=== PATIENT | female | born 1945 | race Caucasian/White ===

== ENCOUNTER → 2024-06-24 | Outpatient (CLI) | payer MEDICARE, OTHER, SELFPAY ==
[2024-06-24 12:46] LABS: Collection Type, Urine Clean Catch; Squamous Epithelial Cell,Urine 0 /hpf (0-5)
[2024-06-24 12:49] LABS: Basophils # (Auto) 0.1 Thou/mm3 (0.0-0.2); Basophils % (Auto) 1 % (0-2.5); Eosinophils # (Auto) 0.1 Thou/mm3 (0.0-0.5); Eosinophils % (Auto) 1 % (0-10); Hematocrit 38.7 % (36.0-46.0); Hemoglobin 12.9 g/dL (12.0-16.0); Immature Granulocytes % (Auto) 0 % (0-0); Immature Granulocytes Auto 0.01 Thou/mm3 (0.00-0.00); Lymphocytes # (Auto) 1.9 Thou/mm3 (1.0-4.8); Lymphocytes % (Auto) 30 % (10-50); Mean Corpuscular HGB Conc 33.3 g/dl (31.0-37.0); Mean Corpuscular Volume 93 fL (80-100); Monocytes # (Auto) 0.5 Thou/mm3 (0.0-0.8); Monocytes % (Auto) 7 % (0-12); Neutrophils # (Auto) 3.8 Thou/mm3 (1.8-7.7); Neutrophils % (Auto) 61 % (37-80); Nucleated Red Blood Cell % 0 /100 WBC (0); Platelet Count 286 Thou/mm3 (140-440); RDW Standard Deviation 42.7 fL (36.4-46.3); Red Blood Count 4.16 Miln/mm3 (4.00-5.20); White Blood Count 6.2 Thou/mm3 (3.6-11.0)
[2024-06-24 13:03] LABS: Alanine Aminotransferase 16 U/L (10-49); Albumin, Serum 4.8 gm/dL (3.4-4.8); Albumin/Globulin Ratio 2.1 (1.2-2.2); Alkaline Phosphatase 44 U/L (46-116); Anion Gap 6 (7-16); Aspartate Amino Transferase 28 U/L (0-34); BUN/Creatinine Ratio 32 Ratio (12-20); Bilirubin,Total 0.4 mg/dL (0.3-1.2); Blood Urea Nitrogen 29 mg/dL (9-23); Carbon Dioxide 27.6 mMol/L (20.0-31.0); Chloride 100 mMol/L (98-107); Creatinine (Component) 0.9 mg/dL (0.6-1.3); Globulin 2.3 gm/dL (2.3-3.5); Glucose 105 mg/dL (74-106); Osmolality,Calculated 274 (275-295); Potassium 4.3 mMol/L (3.4-5.1); Sodium 134 mMol/L (136-145); Thyroid Stimulating Hormone 2.37 uIU/mL (0.55-4.78); Total Protein 7.1 gm/dL (5.7-8.2); eGFR > 60 See Note
[2024-06-24 13:55] LABS: Bilirubin,Urine Negative (Negative); Blood,Urine Negative (Negative); Clarity,Urine Clear (Clear/Hazy); Color,Urine Lt-Yellow (Lt Yel-Yel); Culture Indicated,Urine Not Indicated; Glucose, Urine Negative (Negative); Ketones,Urine Negative (Negative); Leukocyte Esterase,Urine Negative (Negative); Nitrite,Urine Negative (Negative); PH,Urine 6.5 (5.0-7.0); Protein,Urine Negative (Neg - Trace); RBC,Urine 5 /hpf (0-3); Specific Gravity,Urine 1.018 (1.001-1.035); Urobilinogen,Urine Negative mg/dL (0.0-1.0); WBC,Urine < 1 /hpf (0-5)
[2024-06-24 14:18] LABS: Iron 57 mcg/dL (50-170)
[2024-06-25 01:35] LABS: Ferritin 88 ng/mL (7.3-270.7)
== END | disposition home or self-care (01) ==
LOC: COPL 12:02
PROVIDERS: PCP Physician Assistant; Referring Provider Physician Assistant; Visit Provider Physician Assistant
DX: E03.9 Hypothyroidism, unspecified (principal); D50.9 Iron deficiency anemia, unspecified; R31.9 Hematuria, unspecified
CPT/HCPCS: 36415; 80053; 81001; 82728; 83540; 84443; 85025

== ENCOUNTER → 2024-07-11 | Outpatient (CLI) | payer MEDICARE, SELFPAY ==
--- NOTE | 2024-07-11 10:30 | XR_ITS ---
Examination: CT abdomen and pelvis without contrast. Coronal 3-D reconstructions. Sagittal 2-D reconstructions. Date and time of exam:July 11, 2024 1036 hours INDICATIONS: Microscopic hematuria and back pain beginning 8 months ago CTDI: vol (mGy): 7.94 DLP: (mGycm): 375 Technique: Axial images of the abdomen have been obtained, 3 mm slice thickness Intravenous contrast material has not been administered. Low dose protocols were performed. One or more of the following dose reduction techniques were used; automated exposure control, adjustment of the mA and/or KV according to patient size, use of iterative reconstruction technique. Findings: 22 mm left lobe liver cyst No gallstones Spleen is not enlarged No pancreatic mass 14 mm left adrenal nodule which appears to be an adenoma No renal or ureteral calculi, no hydronephrosis Aorta normal size Absent appendix No bowel obstruction Detail in the pelvis is reduced by bilateral hip arthroplasties No significant bladder detail Grade 1 anterolisthesis L4 on L5 Advanced degenerative disc disease L2-L3 IMPRESSION: No renal or ureteral calculi, no hydronephrosis If hematuria persists, consider renal urinary bladder sonography follow-up
== END | disposition home or self-care (01) ==
PROVIDERS: PCP Physician Assistant; Referring Provider Physician Assistant; Visit Provider Physician Assistant
DX: R31.9 Hematuria, unspecified (principal)
CPT/HCPCS: 74176

== ENCOUNTER → 2024-09-02 | Outpatient (CLI) | payer MEDICARE, SELFPAY ==
[2024-09-02 12:41] LABS: Collection Type, Urine Clean Catch
[2024-09-02 13:34] LABS: Bilirubin,Urine Negative (Negative); Blood,Urine Negative (Negative); Clarity,Urine Clear (Clear/Hazy); Color,Urine Drk-Yellow (Lt Yel-Yel); Glucose, Urine Negative (Negative); Ketones,Urine Negative (Negative); Leukocyte Esterase,Urine Negative (Negative); Nitrite,Urine Negative (Negative); Protein,Urine Negative (Neg - Trace); RBC,Urine 11 /hpf (0-3); Specific Gravity,Urine 1.026 (1.001-1.035); Squamous Epithelial Cell,Urine < 1 /hpf (0-5); Urobilinogen,Urine Negative mg/dL (0.0-1.0); WBC,Urine < 1 /hpf (0-5)
== END | disposition home or self-care (01) ==
LOC: SLDO 12:22
PROVIDERS: Referring Provider Nurse Practitioner Family; Visit Provider Nurse Practitioner Family
DX: R31.29 Other microscopic hematuria (principal)
CPT/HCPCS: 81001; 87086

== ENCOUNTER → 2024-09-23 | Outpatient (CLI) | payer MEDICARE, SELFPAY ==
[2024-09-23 12:19] LABS: Basophils # (Auto) 0.1 Thou/mm3 (0.0-0.2); Basophils % (Auto) 1 % (0-2.5); Eosinophils # (Auto) 0.1 Thou/mm3 (0.0-0.5); Eosinophils % (Auto) 1 % (0-10); Hematocrit 37.3 % (36.0-46.0); Hemoglobin 12.4 g/dL (12.0-16.0); Immature Granulocytes % (Auto) 0 % (0-0); Immature Granulocytes Auto 0.01 Thou/mm3 (0.00-0.00); Lymphocytes # (Auto) 1.7 Thou/mm3 (1.0-4.8); Lymphocytes % (Auto) 28 % (10-50); Mean Corpuscular HGB Conc 33.2 g/dl (31.0-37.0); Mean Corpuscular Hemoglobin 31.1 pg (25.0-35.0); Mean Corpuscular Volume 94 fL (80-100); Monocytes # (Auto) 0.4 Thou/mm3 (0.0-0.8); Monocytes % (Auto) 7 % (0-12); Neutrophils # (Auto) 3.9 Thou/mm3 (1.8-7.7); Neutrophils % (Auto) 63 % (37-80); Nucleated Red Blood Cell % 0 /100 WBC (0); Platelet Count 283 Thou/mm3 (140-440); RDW Standard Deviation 44.8 fL (36.4-46.3); Red Blood Count 3.99 Miln/mm3 (4.00-5.20); White Blood Count 6.1 Thou/mm3 (3.6-11.0)
[2024-09-23 12:32] LABS: Alanine Aminotransferase 18 U/L (10-49); Albumin, Serum 4.2 gm/dL (3.4-4.8); Albumin/Globulin Ratio 2.1 (1.2-2.2); Alkaline Phosphatase 34 U/L (46-116); Anion Gap 7 (7-16); Aspartate Amino Transferase 26 U/L (0-34); BUN/Creatinine Ratio 33 Ratio (12-20); Bilirubin,Total 0.4 mg/dL (0.3-1.2); Blood Urea Nitrogen 30 mg/dL (9-23); Calcium 9.8 mg/dL (8.3-10.6); Calcium (Corrected) 9.8 mg/dL (8.5-10.1); Carbon Dioxide 28.9 mMol/L (20.0-31.0); Chloride 99 mMol/L (98-107); Creatinine (Component) 0.9 mg/dL (0.6-1.3); Glucose 105 mg/dL (74-106); Osmolality,Calculated 276 (275-295); Potassium 4.2 mMol/L (3.4-5.1); Sodium 135 mMol/L (136-145); Total Protein 6.2 gm/dL (5.7-8.2); eGFR > 60 See Note
== END | disposition home or self-care (01) ==
LOC: SCTO 11:31
PROVIDERS: PCP Physician Assistant; Referring Provider Internal Medicine Hematology & Oncology; Visit Provider Internal Medicine Hematology & Oncology
DX: C50.412 Malignant neoplasm of upper-outer quadrant of left female breast (principal)
CPT/HCPCS: 36415; 80053; 85025

== ENCOUNTER 2024-09-30 14:32 | Outpatient (RCR) | payer MEDICARE, SELFPAY | END 2024-10-15 23:59 | disposition home or self-care (01) | LOC: SCTC 14:32 | PROVIDERS: PCP Physician Assistant; Referring Provider Physician Assistant; Visit Provider Internal Medicine Hematology & Oncology | DX: M85.839 Other specified disorders of bone density and structure, unspecified forearm (principal); C50.812 Malignant neoplasm of overlapping sites of left female breast; Z17.0 Estrogen receptor positive status [ER+]; Z17.22 Progesterone receptor negative status; Z17.32 Human epidermal growth factor receptor 2 negative status | CPT/HCPCS: 96372; J0897 ==

== ENCOUNTER → 2024-10-02 | Outpatient (CLI) | payer MEDICARE, SELFPAY ==
[2024-10-02 11:25] LABS: Basophils % (Auto) 1 % (0-2.5); Eosinophils # (Auto) 0.1 Thou/mm3 (0.0-0.5); Eosinophils % (Auto) 1 % (0-10); Hematocrit 37.2 % (36.0-46.0); Hemoglobin 12.5 g/dL (12.0-16.0); Immature Granulocytes % (Auto) 1 % (0-0); Immature Granulocytes Auto 0.03 Thou/mm3 (0.00-0.00); Lymphocytes # (Auto) 1.6 Thou/mm3 (1.0-4.8); Lymphocytes % (Auto) 25 % (10-50); Mean Corpuscular HGB Conc 33.6 g/dl (31.0-37.0); Mean Corpuscular Hemoglobin 31.3 pg (25.0-35.0); Mean Corpuscular Volume 93 fL (80-100); Monocytes # (Auto) 0.4 Thou/mm3 (0.0-0.8); Monocytes % (Auto) 7 % (0-12); Neutrophils # (Auto) 4.2 Thou/mm3 (1.8-7.7); Neutrophils % (Auto) 66 % (37-80); Nucleated Red Blood Cell % 0 /100 WBC (0); Platelet Count 285 Thou/mm3 (140-440); RDW Standard Deviation 45.1 fL (36.4-46.3); Red Blood Count 3.99 Miln/mm3 (4.00-5.20); White Blood Count 6.3 Thou/mm3 (3.6-11.0)
[2024-10-02 11:54] LABS: Albumin, Serum 4.4 gm/dL (3.4-4.8); Anion Gap 8 (7-16); BUN/Creatinine Ratio 28 Ratio (12-20); Blood Urea Nitrogen 28 mg/dL (9-23); Calcium 9.7 mg/dL (8.3-10.6); Calcium (Corrected) 9.7 mg/dL (8.5-10.1); Carbon Dioxide 27.4 mMol/L (20.0-31.0); Chloride 103 mMol/L (98-107); Glucose 106 mg/dL (74-106); Osmolality,Calculated 281 (275-295); Phosphorous 3.8 mg/dL (2.4-5.1); Potassium 4.2 mMol/L (3.4-5.1); Sodium 138 mMol/L (136-145); eGFR 58 See Note
[2024-10-02 11:55] LABS: Vitamin D 25 Hydroxy Total 57.4 ng/mL (7.3-40.2)
[2024-10-02 12:39] LABS: Creatinine,Random Urine 62 mg/dL (30-125); Protein Total, Random Urine 7 mg/dL (1-14)
== END | disposition home or self-care (01) ==
LOC: COPL 10:16
PROVIDERS: PCP Family Medicine; Referring Provider Internal Medicine; Visit Provider Internal Medicine
DX: M19.90 Unspecified osteoarthritis, unspecified site (principal); N18.2 Chronic kidney disease, stage 2 (mild); N20.0 Calculus of kidney
CPT/HCPCS: 36415; 80069; 82306; 82570; 84156; 85025

== ENCOUNTER 2024-11-27 15:11 | Outpatient (RCR) | payer MEDICARE, OTHER, SELFPAY ==
--- NOTE | 2024-12-07 23:45 | CTCFLWUP_ITS ---
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 She is currently on letrozole therapy, which was initiated after her Oncotype DX score of 22. The patient reports that she is doing fine with her current treatment regimen. She has been receiving Prolia injections for osteopenia, with her most recent injections in March and September, and the next one scheduled for March. The patient's bone density has shown improvement since 2018, with an 8-10% increase attributed to the Prolia treatment. Regarding calcium intake, the patient states that her calcium levels are good now. However, it was noted that she had been taking insufficient calcium for years, which contributed to her osteopenic condition. She reports consuming cheese daily but may not have been meeting her full calcium requirements through diet alone. The patient mentions receiving radiation treatment in the past, during which a physician had suggested she had a good 10 years left. This comment appears to have impacted her perception of her prognosis, although no current concerns about life expectancy were explicitly stated by the patient. Medications and Supplements - Letrozole - Prolia - Administered in March and September - Next dose scheduled for March - Improving bone density (8-10% improvement since 2018) - Calcium - Taken twice daily - Total daily requirement: 1200 milligrams - Vitamin D - Taken with lunch or dinner - Vitamin B12 Objective: Laboratory, Imaging, and Diagnostic Test Results - Oncotype DX score: 22 - DEXA scan: Shows osteopenia, improved 8-10% since 2018 - Mammogram and ultrasound (approximately 1 month ago): Normal - Liver enzymes: Normal - CT scan: Small adenoma on adrenal glands - Calcium level: Good (current) ONCOLOGY HISTORY: DIAGNOSIS: Stage Ia (pT1b, snN0, cM0), ER positive, WV negative, HER2/jaime negative, 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 S/p adjuvant radiation therapy (08/02/2023 - 08/24/2023) On adjuvant anastrozole since 06/14/2023. Remote history of TIA. History of glaucoma. History of osteopenia. REASON FOR TODAY?S VISIT: This is office follow-up visit. Ms. Wong is here at [facility]. She is currently on adjuvant anastrozole. She is tolerating it very well. Denies any complaints. Denies any joint pains, muscle aches, hot flashes, cough, chest pain, abdominal pain or leg cramps. Ambulating well without any help. Has good appetite and good energy levels. She is currently being followed by Dr. Matthews for possible irritable bowel syndrome. Malignant neoplasm of upper-outer quadrant of left female breast [ICD10] C50.412 DATE OF DIAGNOSIS: 03/19/2023 STAGE/TNM: Stage 1 T1nomo Er pos pr neg TREATMENT HISTORY: Care?Plan Start?Date Cycle Day Intent PROLia?60mg?every?6?months 09/20/2023 1 180 Palliative HISTORY OF PRESENT ILLNESS: Deacon Wong is a 79-year-old ENG speaking female with history of glaucoma, and TIA as the following oncology history. 12/06/2022: Bone density test? 03/16/2023: Ms. Wong had a left breast diagnostic mammogram with spot compression views as well as left breast ultrasound. 03/19/2023: Left breast needle core biopsy? 04/27/2023: Ms. Wong had left breast lumpectomy as well as sentinel lymph node biopsy. 06/06/2023: Ms. Wong was seen by Dr. Herbert, radiation oncologist. Prosigna (R) breast cancer gene signature assay test is requested. The insurance company denied Oncotype DX study. OTHER MEDICAL HISTORY/CONDITIONS: breast ca chicken poex ear infections chldhood glaucoma thyroid dx measales mmps rubella scarlet fever whoopig cough hip replacment bilat 2007 BILAT RENAL SURGERY FINGER FIGURE. 2017 HYSTRECTOMY ?Clone Other Med Hx? FAMILY HISTORY: Patient?denies?family?cancer?history. ?Clone Family Hx? 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 MEDICATIONS: 1. anastrozole - 1 mg 1 tab 1 tab po q daily 2. calcium - 600 mg 1 tab Twice a Day 3. ferrous sulfate - 325 mg Daily 4. Synthroid - 25 mcg/24 h Daily 5. Vitamin D3 - As directed?Palabra Meds? Medications Last Reconciled by Rosana Richter MA on 11/27/2024 ALLERGIES: No Known Drug Allergies REVIEW OF SYSTEMS: A complete 14-point review of systems was performed and is negative except as noted in interval history. PHYSICAL EXAMINATION: VITAL SIGNS: Temperature?98, B/P?126/75, Oxygen?Saturation?96% Weight?127?lbs PAIN: 0 - No pain ECOG Performance Status: 0 - Asymptomatic and fully active GENERAL APPEARANCE: Appears well, in no apparent distress, appropriately interactive. HEENT: Normocephalic, no temporal wasting, normal conjunctiva, no scleral icterus, normal hearing, lips without lesions, neck normal range of motion. CARDIOVASCULAR: Not assessed. PULMONARY: Normal respiratory effort, no respiratory distress or use of accessory muscles, speaking in full sentences, no tachypnea. EXTREMITIES: No pedal edema or cyanosis. SKIN: Normal skin appearance. NEUROLOGIC: Alert and oriented x4. PSHYCHIATRIC: Appropriate affect, mood normal, behavior normal, intact thought and speech. LABORATORY DATA: I have personally reviewed and interpreted each of the patient?s relevant lab tests, abnormal findings are below: Date 09/23/24 10/02/24 ??WHITE?BLOOD?COUNT?(Thou/mm3) 6.1 6.3 ??RED?BLOOD?COUNT?(Miln/mm3) 3.99?L 3.99?L ??HEMOGLOBIN?(gm/dl) 12.4 12.5 ??HEMATOCRIT?(%) 37.3 37.2 ??PLATELET?COUNT?(Thou/mm3) 283 285 ??NEUTROPHILS?%,?AUTO?(%) 63 66 ??LYMPH?%,?AUTO?(%) 28 25 ??NEUTROPHILS,?AUTO?(Thou/mm3) 3.9 4.2 ??GLUCOSE,RANDOM?(mg/dL) 105 106 ??BLOOD?UREA?NITROGEN?(mg/dL) 30?H 28?H ??CREATININE?(mg/dL) 0.90 1.00 ??SODIUM?(mmol/L) 135?L 138 ??POTASSIUM?(mmol/L) 4.2 4.2 ??CHLORIDE?(mmol/L) 99 103 ??CrCl?(CandG)?(ml/min) 47.44 42.90 ??AST/SGOT?(Unit/L) 26 ? ??ALT/SGPT?(Unit/L) 18 ? ??ALKALINE?PHOSPHATASE?(Unit/L) 34?L ? ??BILIRUBIN,?TOTAL?(mg/dL) 0.4 ? ??PROTEIN?TOTAL?(gm/dl) 6.2 ? ??ALBUMIN,?SERUM?(gm/dl) 4.2 4.4 ??GLOBULIN?(gm/dl) 2.0?L ? ??ALBUMIN/GLOBULIN?RATIO 2.1 ? 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 She has undergone lumpectomy. Oncotype DX score was 22. Recent mammogram and ultrasound were normal. Liver enzymes are normal. CT scan showed a small adenoma on the adrenal glands, not the liver. Plan: - Continue letrozole (current dose and frequency not specified) - Order CBC and CMP every 4 months - Release lab slip for CBC-CMP now - Continue regular follow-up imaging (mammogram and ultrasound) as per current schedule Osteopenia Assessment: Patient has osteopenia, diagnosed on previous DEXA scans. Bone density has improved by 8-10% since 2018, attributed to Prolia treatment. Patient has a history of inadequate calcium intake. Plan: - Continue Prolia injections every 6 months (next dose due in March) - Release lab slip for Prolia, including calcium level check - Increase daily calcium intake to 1200 mg, taken in two divided doses - Take calcium supplements with lunch or dinner, not breakfast - Ensure calcium supplements also contain vitamin D - Continue vitamin D supplementation (dose not specified) - Take vitamin D with a meal containing fat for better absorption - Encourage increased dietary calcium intake, especially from dairy products ORDERS: Order # Description [id number] Basic Metabolic Panel [id number] Basic Metabolic Panel [id number] Basic Metabolic Panel [id number] Basic Metabolic Panel RETURN TO CLINIC: BILLING AND COMPLIANCE: I reviewed external records from providers outside my specialty as summarized above. I spent a total of 50 minutes on this patient?s care on the day of their visit excluding time spent related to any billed procedures. This time includes time spent with the patient as well as time spent documenting in the medical record, reviewing patients records and tests, obtaining history, placing orders, communicating with other healthcare professionals, counseling the patient, family or caregiver, and/or care coordination for the diagnoses above. Electronically Signed by: Toney Montgomery MD T: 11:43 PM CC: PCP: Sara Wilkerson Referring: Sara Wilkerson This document was completed utilizing speech recognition software. Grammatical errors, random word insertions, pronoun errors, and incomplete sentences are an occasional consequence of this system due to software limitations, ambient noise, and hardware issues. Any formal questions or concerns about the content, text or information contained within the body of this dictation should be directly addressed to the provider for clarification.
== END 2024-12-15 23:59 | disposition home or self-care (01) ==
LOC: SCTC 15:11
PROVIDERS: PCP Family Medicine; Referring Provider Family Medicine; Visit Provider Internal Medicine Hematology & Oncology
DX: C50.812 Malignant neoplasm of overlapping sites of left female breast (principal); Z17.0 Estrogen receptor positive status [ER+]; Z17.22 Progesterone receptor negative status; Z17.32 Human epidermal growth factor receptor 2 negative status; Z79.811 Long term (current) use of aromatase inhibitors; Z90.12 Acquired absence of left breast and nipple; M85.88 Other specified disorders of bone density and structure, other site
CPT/HCPCS: 99212; G0463

== ENCOUNTER → 2024-12-29 | Outpatient (CLI) | payer MEDICARE, OTHER, SELFPAY ==
[2024-12-29 08:23] LABS: Basophils # (Auto) 0.0 Thou/mm3 (0.0-0.2); Basophils % (Auto) 1 % (0-2.5); Eosinophils # (Auto) 0.1 Thou/mm3 (0.0-0.5); Eosinophils % (Auto) 1 % (0-10); Hematocrit 39.3 % (36.0-46.0); Hemoglobin 13.0 g/dL (12.0-16.0); Immature Granulocytes Auto 0.01 Thou/mm3 (0.00-0.00); Lymphocytes # (Auto) 1.3 Thou/mm3 (1.0-4.8); Lymphocytes % (Auto) 25 % (10-50); Mean Corpuscular HGB Conc 33.1 g/dl (31.0-37.0); Mean Corpuscular Hemoglobin 31.2 pg (25.0-35.0); Mean Corpuscular Volume 94 fL (80-100); Monocytes # (Auto) 0.3 Thou/mm3 (0.0-0.8); Monocytes % (Auto) 6 % (0-12); Neutrophils # (Auto) 3.6 Thou/mm3 (1.8-7.7); Neutrophils % (Auto) 67 % (37-80); Nucleated Red Blood Cell # 0.00 Thou/mm3 (0.00-0.00); Nucleated Red Blood Cell % 0 /100 WBC (0); Platelet Count 266 Thou/mm3 (140-440); RDW Standard Deviation 42.4 fL (36.4-46.3); Red Blood Count 4.17 Miln/mm3 (4.00-5.20); White Blood Count 5.3 Thou/mm3 (3.6-11.0)
[2024-12-29 08:43] LABS: Vitamin B12 1531 pg/mL (211-911); Vitamin D 25 Hydroxy Total 76.0 ng/mL (7.3-40.2)
[2024-12-29 08:47] LABS: Alanine Aminotransferase 17 U/L (10-49); Albumin, Serum 4.5 gm/dL (3.4-4.8); Albumin/Globulin Ratio 2.1 (1.2-2.2); Alkaline Phosphatase 33 U/L (46-116); Anion Gap 9 (7-16); Aspartate Amino Transferase 28 U/L (0-34); BUN/Creatinine Ratio 19 Ratio (12-20); Bilirubin,Total 0.7 mg/dL (0.3-1.2); Blood Urea Nitrogen 17 mg/dL (9-23); Calcium 9.5 mg/dL (8.3-10.6); Calcium (Corrected) 9.5 mg/dL (8.5-10.1); Carbon Dioxide 27.6 mMol/L (20.0-31.0); Cardiac Risk Estimate 2.2 RATIO (3.7-5.6); Chloride 101 mMol/L (98-107); Cholesterol 196 mg/dL (132-200); Creatinine (Component) 0.9 mg/dL (0.6-1.3); Globulin 2.1 gm/dL (2.3-3.5); Glucose 106 mg/dL (74-106); HDL Cholesterol 89 mg/dL (40-60); LDL Cholesterol,Calculated 93 mg/dL (0-130); Osmolality,Calculated 277 (275-295); Potassium 4.2 mMol/L (3.4-5.1); Sodium 138 mMol/L (136-145); Thyroid Stimulating Hormone 2.95 uIU/mL (0.55-4.78); Total Protein 6.6 gm/dL (5.7-8.2); Triglycerides 69 mg/dL (30-150); eGFR > 60 See Note
[2024-12-29 08:50] LABS: Ferritin 97 ng/mL (7.3-270.7); Iron 76 mcg/dL (50-170)
[2025-01-05 08:07] LABS: Fecal Globin Result NOT DETECTED (NOT DETECTED)
== END | disposition home or self-care (01) ==
LOC: COPL 07:41
PROVIDERS: PCP Family Medicine; Referring Provider Physician Assistant; Visit Provider Physician Assistant
DX: E03.9 Hypothyroidism, unspecified (principal); D50.9 Iron deficiency anemia, unspecified; R31.9 Hematuria, unspecified; E55.9 Vitamin D deficiency, unspecified
CPT/HCPCS: 36415; 80053; 80061; 82274; 82306; 82607; 82728; 83540; 84443; 85025; G0328

== ENCOUNTER → 2025-01-02 | Outpatient (CLI) | payer MEDICARE, OTHER, SELFPAY ==
[2025-01-02 14:08] LABS: Collection Type, Urine Clean Catch; Squamous Epithelial Cell,Urine 0 /hpf (0-5)
[2025-01-02 14:48] LABS: Bilirubin,Urine Negative (Negative); Blood,Urine Trace (Negative); Clarity,Urine Clear (Clear/Hazy); Color,Urine Colorless (Lt Yel-Yel); Culture Indicated,Urine Not Indicated; Glucose, Urine Negative (Negative); Ketones,Urine Negative (Negative); Leukocyte Esterase,Urine Negative (Negative); Nitrite,Urine Negative (Negative); PH,Urine 6.0 (5.0-7.0); Protein,Urine Negative (Neg - Trace); RBC,Urine 1 /hpf (0-3); Specific Gravity,Urine 1.013 (1.001-1.035); Urobilinogen,Urine Negative mg/dL (0.0-1.0); WBC,Urine < 1 /hpf (0-5)
== END | disposition home or self-care (01) ==
LOC: SLDO 13:56
PROVIDERS: PCP Physician Assistant; Referring Provider Physician Assistant; Visit Provider Physician Assistant
DX: R31.9 Hematuria, unspecified (principal); D50.9 Iron deficiency anemia, unspecified; E03.9 Hypothyroidism, unspecified; E55.9 Vitamin D deficiency, unspecified
CPT/HCPCS: 81001

== ENCOUNTER → 2025-02-12 | Outpatient (CLI) | payer MEDICARE, OTHER, SELFPAY ==
--- NOTE | 2025-02-12 | XR_ITS ---
Examination: Bone densitometry Date and time of exam:February 12, 2025, 1417 hours INDICATIONS: Hysterectomy age 33 vitamin D and calcium 10 years Technique: Lumbar spine and forearm total bone mineralization values of an calculated. Peak reference and age match control results have been displayed. Findings: Lumbar spine total bone mineralization is1.086 gm/cm2. This is 0.4 standard deviations above peak reference. This is 3.0 standard deviations above age-matched controls. Forearm total bone mineralization is 0.530 gm/cm2 This is 0.7 standard deviations below peak reference. This is 2.4 standard deviations above age-matched controls Impression: There is normal mineralization based on lumbar spine measurements. There is normal mineralization based on forearm measurements Lumbar mineralization is increased 9.2% compared with December 06, 2022. Forearm Mineralization is increase 6.0% compared with December 06, 2022.
== END | disposition home or self-care (01) ==
PROVIDERS: PCP Physician Assistant; Referring Provider Physician Assistant; Visit Provider Physician Assistant
DX: M81.0 Age-related osteoporosis without current pathological fracture (principal)
CPT/HCPCS: 77080

== ENCOUNTER → 2025-03-24 | Outpatient (CLI) | payer MEDICARE, OTHER, SELFPAY ==
[2025-03-24 13:13] LABS: Basophils # (Auto) 0.0 Thou/mm3 (0.0-0.2); Basophils % (Auto) 1 % (0-2.5); Eosinophils # (Auto) 0.1 Thou/mm3 (0.0-0.5); Eosinophils % (Auto) 1 % (0-10); Hematocrit 36.5 % (36.0-46.0); Hemoglobin 12.0 g/dL (12.0-16.0); Immature Granulocytes Auto 0.01 Thou/mm3 (0.00-0.00); Lymphocytes # (Auto) 1.8 Thou/mm3 (1.0-4.8); Lymphocytes % (Auto) 28 % (10-50); Mean Corpuscular HGB Conc 32.9 g/dl (31.0-37.0); Mean Corpuscular Hemoglobin 30.8 pg (25.0-35.0); Mean Corpuscular Volume 94 fL (80-100); Monocytes # (Auto) 0.5 Thou/mm3 (0.0-0.8); Monocytes % (Auto) 8 % (0-12); Neutrophils # (Auto) 3.9 Thou/mm3 (1.8-7.7); Neutrophils % (Auto) 62 % (37-80); Nucleated Red Blood Cell # 0.00 Thou/mm3 (0.00-0.00); Nucleated Red Blood Cell % 0 /100 WBC (0); Platelet Count 263 Thou/mm3 (140-440); RDW Standard Deviation 43.1 fL (36.4-46.3); Red Blood Count 3.89 Miln/mm3 (4.00-5.20); White Blood Count 6.3 Thou/mm3 (3.6-11.0)
[2025-03-24 13:30] LABS: Alanine Aminotransferase 15 U/L (10-49); Albumin, Serum 4.7 gm/dL (3.4-4.8); Albumin/Globulin Ratio 2.4 (1.2-2.2); Alkaline Phosphatase 33 U/L (46-116); Anion Gap 8 (7-16); Aspartate Amino Transferase 27 U/L (0-34); BUN/Creatinine Ratio 30 Ratio (12-20); Bilirubin,Total 0.4 mg/dL (0.3-1.2); Blood Urea Nitrogen 27 mg/dL (9-23); Calcium 10.1 mg/dL (8.3-10.6); Calcium (Corrected) 10.1 mg/dL (8.5-10.1); Carbon Dioxide 27.3 mMol/L (20.0-31.0); Chloride 100 mMol/L (98-107); Creatinine (Component) 0.9 mg/dL (0.6-1.3); Globulin 2.0 gm/dL (2.3-3.5); Glucose 102 mg/dL (74-106); Osmolality,Calculated 275 (275-295); Potassium 4.4 mMol/L (3.4-5.1); Sodium 135 mMol/L (136-145); Total Protein 6.7 gm/dL (5.7-8.2); eGFR > 60 See Note
== END | disposition home or self-care (01) ==
LOC: SCTO 11:53
PROVIDERS: PCP Family Medicine; Referring Provider Internal Medicine Hematology & Oncology; Visit Provider Internal Medicine Hematology & Oncology
DX: C50.412 Malignant neoplasm of upper-outer quadrant of left female breast (principal)
CPT/HCPCS: 36415; 80053; 85025

== ENCOUNTER → 2025-03-31 | Outpatient (CLI) | payer MEDICARE, OTHER, SELFPAY ==
[2025-03-31 12:17] LABS: Basophils # (Auto) 0.1 Thou/mm3 (0.0-0.2); Basophils % (Auto) 1 % (0-2.5); Eosinophils # (Auto) 0.1 Thou/mm3 (0.0-0.5); Eosinophils % (Auto) 2 % (0-10); Hematocrit 37.1 % (36.0-46.0); Hemoglobin 12.3 g/dL (12.0-16.0); Immature Granulocytes Auto 0.01 Thou/mm3 (0.00-0.00); Lymphocytes # (Auto) 1.5 Thou/mm3 (1.0-4.8); Lymphocytes % (Auto) 29 % (10-50); Mean Corpuscular HGB Conc 33.2 g/dl (31.0-37.0); Mean Corpuscular Hemoglobin 31.1 pg (25.0-35.0); Mean Corpuscular Volume 94 fL (80-100); Monocytes # (Auto) 0.3 Thou/mm3 (0.0-0.8); Monocytes % (Auto) 7 % (0-12); Neutrophils # (Auto) 3.1 Thou/mm3 (1.8-7.7); Neutrophils % (Auto) 61 % (37-80); Nucleated Red Blood Cell # 0.00 Thou/mm3 (0.00-0.00); Nucleated Red Blood Cell % 0 /100 WBC (0); Platelet Count 251 Thou/mm3 (140-440); RDW Standard Deviation 43.3 fL (36.4-46.3); Red Blood Count 3.95 Miln/mm3 (4.00-5.20); White Blood Count 5.1 Thou/mm3 (3.6-11.0)
[2025-03-31 12:49] LABS: Albumin, Serum 4.5 gm/dL (3.4-4.8); Anion Gap 9 (7-16); BUN/Creatinine Ratio 30 Ratio (12-20); Blood Urea Nitrogen 27 mg/dL (9-23); Calcium 10.0 mg/dL (8.3-10.6); Calcium (Corrected) 10.0 mg/dL (8.5-10.1); Carbon Dioxide 29.3 mMol/L (20.0-31.0); Chloride 98 mMol/L (98-107); Creatinine (Component) 0.9 mg/dL (0.6-1.3); Glucose 112 mg/dL (74-106); Osmolality,Calculated 278 (275-295); Phosphorous 3.5 mg/dL (2.4-5.1); Potassium 4.3 mMol/L (3.4-5.1); Sodium 136 mMol/L (136-145); eGFR > 60 See Note
[2025-03-31 12:51] LABS: Vitamin D 25 Hydroxy Total 65.1 ng/mL (7.3-40.2)
== END | disposition home or self-care (01) ==
LOC: COPL 11:34
PROVIDERS: PCP Family Medicine; Referring Provider Internal Medicine; Visit Provider Internal Medicine
DX: M19.90 Unspecified osteoarthritis, unspecified site (principal); N18.2 Chronic kidney disease, stage 2 (mild); N20.0 Calculus of kidney
CPT/HCPCS: 36415; 80069; 82306; 85025

== ENCOUNTER 2025-05-28 15:23 | Outpatient (RCR) | payer MEDICARE, OTHER, SELFPAY ==
--- NOTE | 2025-06-22 00:06 | CTCFLWUP_ITS ---
Patient: DEACON WONG : 1945 Page 4 of 6 FOLLOW UP NOTE DATE OF SERVICE: 05/28/2025 NAME: DEACON WONG ACCOUNT: [id number] : 1945 AGE: 79 INTERVAL HISTORY: No new complaints ONCOLOGY HISTORY:?[facility] Hx? 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 S/p adjuvant radiation therapy (08/02/2023 - 08/24/2023) On adjuvant anastrozole since 06/14/2023. Remote history of TIA. History of glaucoma. History of osteopenia. REASON FOR TODAY?S VISIT: This is office follow-up visit. Ms. Wong is here at [facility]. She is currently on adjuvant anastrozole. She is tolerating it very well. Denies any complaints. Denies any joint pains, muscle aches, hot flashes, cough, chest pain, abdominal pain or leg cramps. Ambulating well without any help. Has good appetite and good energy levels. She is currently being followed by Dr. Matthews for possible irritable bowel syndrome. Malignant neoplasm of upper-outer quadrant of left female breast [ICD10] C50.412 DATE OF DIAGNOSIS: 03/19/2023 STAGE/TNM: Stage 1 T1nomo Er pos pr neg TREATMENT HISTORY: Care?Plan Start?Date Cycle Day Intent PROLia?60mg?every?6?months 09/20/2023 1 180 Palliative HISTORY OF PRESENT ILLNESS: Deacon Wong is a 79-year-old ENG speaking female with history of glaucoma, and TIA as the following oncology history. 12/06/2022: Bone density test? 03/16/2023: Ms. Wong had a left breast diagnostic mammogram with spot compression views as well as left breast ultrasound. 03/19/2023: Left breast needle core biopsy? 04/27/2023: Ms. Wong had left breast lumpectomy as well as sentinel lymph node biopsy. 06/06/2023: Ms. Wong was seen by Dr. Herbert, radiation oncologist. Prosigna (R) breast cancer gene signature assay test is requested. The insurance company denied Oncotype DX study. OTHER MEDICAL HISTORY/CONDITIONS: breast ca chicken poex ear infections chldhood glaucoma thyroid dx measales mmps rubella scarlet fever whoopig cough hip replacment bilat 2007 BILAT RENAL SURGERY FINGER FIGURE. 2017 HYSTRECTOMY ?Clone Other Med Hx? FAMILY HISTORY: Patient?denies?family?cancer?history. ?Clone Family Hx? 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 MEDICATIONS: 1. anastrozole - 1 mg 1 tab 1 tab po q daily 2. calcium - 600 mg 1 tab Twice a Day 3. ferrous sulfate - 325 mg Daily 4. Synthroid - 25 mcg/24 h Daily 5. Vitamin D3 - As directed?Palabra Meds? Medications Last Reconciled by Sophie Castrejon MD on 05/28/2025 ALLERGIES: No Known Drug Allergies REVIEW OF SYSTEMS: A complete 14-point review of systems was performed and is negative except as noted in interval history. PHYSICAL EXAMINATION:?CloneBlock PE? VITAL SIGNS: Temperature?97, B/P?126/76, Oxygen?Saturation?96% Weight?123?lbs PAIN: 0 - No pain GENERAL APPEARANCE: Appears well, in no apparent distress, appropriately interactive. HEENT: Normocephalic, no temporal wasting, normal conjunctiva, no scleral icterus, normal hearing, lips without lesions, neck normal range of motion. CARDIOVASCULAR: Not assessed. PULMONARY: Normal respiratory effort, no respiratory distress or use of accessory muscles, speaking in full sentences, no tachypnea. EXTREMITIES: No pedal edema or cyanosis. SKIN: Normal skin appearance. NEUROLOGIC: Alert and oriented x4. PSHYCHIATRIC: Appropriate affect, mood normal, behavior normal, intact thought and speech. LABORATORY DATA: I have personally reviewed and interpreted each of the patient?s relevant lab tests, abnormal findings are below: Date 03/24/25 03/31/25 ??WHITE?BLOOD?COUNT?(Thou/mm3) 6.3 5.1 ??RED?BLOOD?COUNT?(Miln/mm3) 3.89?L 3.95?L ??HEMOGLOBIN?(gm/dl) 12.0 12.3 ??HEMATOCRIT?(%) 36.5 37.1 ??PLATELET?COUNT?(Thou/mm3) 263 251 ??NEUTROPHILS?%,?AUTO?(%) 62 61 ??LYMPH?%,?AUTO?(%) 28 29 ??NEUTROPHILS,?AUTO?(Thou/mm3) 3.9 3.1 ??GLUCOSE,RANDOM?(mg/dL) 102 112?H ??BLOOD?UREA?NITROGEN?(mg/dL) 27?H 27?H ??CREATININE?(mg/dL) 0.90 0.90 ??SODIUM?(mmol/L) 135?L 136 ??POTASSIUM?(mmol/L) 4.4 4.3 ??CHLORIDE?(mmol/L) 100 98 ??CrCl?(CandG)?(ml/min) 46.09 46.09 ??AST/SGOT?(Unit/L) 27 ? ??ALT/SGPT?(Unit/L) 15 ? ??ALKALINE?PHOSPHATASE?(Unit/L) 33?L ? ??BILIRUBIN,?TOTAL?(mg/dL) 0.4 ? ??PROTEIN?TOTAL?(gm/dl) 6.7 ? ??ALBUMIN,?SERUM?(gm/dl) 4.7 4.5 ??GLOBULIN?(gm/dl) 2.0?L ? ??ALBUMIN/GLOBULIN?RATIO 2.4?H ? ??CALCIUM,?SERUM?(mg/dL) 10.1 10.0 ??CALCIUM?SERUM?(CORRECTED)?(mg/dL) 10.1 10.0 ASSESSMENT/PLAN:?Willie Montgomery Assessment/Plan? 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 She has undergone lumpectomy. Oncotype DX score was 22. Recent mammogram and ultrasound were normal. Liver enzymes are normal. CT scan showed a small adenoma on the adrenal glands, not the liver. Plan: - Continue letrozole (current dose and frequency not specified) - Order CBC and CMP every 4 months - Release lab slip for CBC-CMP now - Continue regular follow-up imaging (mammogram and ultrasound) as per current schedule Osteopenia Assessment: Patient has osteopenia, diagnosed on previous DEXA scans. Bone density has improved by 8-10% since 2018, attributed to Prolia treatment. Patient has a history of inadequate calcium intake. Plan: - Continue Prolia injections every 6 months (next dose due in March) - Release lab slip for Prolia, including calcium level check - Increase daily calcium intake to 1200 mg, taken in two divided doses - Take calcium supplements with lunch or dinner, not breakfast - Ensure calcium supplements also contain vitamin D - Continue vitamin D supplementation (dose not specified) - Take vitamin D with a meal containing fat for better absorption - Encourage increased dietary calcium intake, especially from dairy products RETURN TO CLINIC: I reviewed the diagnosis, prognosis, and recommended treatment/procedure options with the patient (and/or their legal development representative), including the potential benefits, risks, side effects and alternative therapies. We also discussed the option of no treatment and the possibility of clinical trial participation, if applicable. All questions were addressed, and they demonstrated understanding. They provided informed consent to proceed with the proposed plan of care. BILLING AND COMPLIANCE: I reviewed external records from providers outside my specialty as summarized above. I spent a total of 50 minutes on this patient?s care on the day of their visit excluding time spent related to any billed procedures. This time includes time spent with the patient as well as time spent documenting in the medical record, reviewing patients records and tests, obtaining history, placing orders, communicating with other healthcare professionals, counseling the patient, family or caregiver, and/or care coordination for the diagnoses above. Electronically Signed by: Toney Montgomery MD T: 12:04 AM CC: PCP: Sara Wilkerson Referring: Sara Wilkerson This document was completed utilizing speech recognition software. Grammatical errors, random word insertions, pronoun errors, and incomplete sentences are an occasional consequence of this system due to software limitations, ambient noise, and hardware issues. Any formal questions or concerns about the content, text or information contained within the body of this dictation should be directly addressed to the provider for clarification.
== END 2025-06-17 23:59 | disposition home or self-care (01) ==
LOC: SCTC 15:23
PROVIDERS: PCP Family Medicine; Referring Provider Family Medicine; Visit Provider Internal Medicine Hematology & Oncology
DX: C50.812 Malignant neoplasm of overlapping sites of left female breast (principal); Z17.0 Estrogen receptor positive status [ER+]; Z17.22 Progesterone receptor negative status; Z17.32 Human epidermal growth factor receptor 2 negative status; Z90.12 Acquired absence of left breast and nipple; Z79.811 Long term (current) use of aromatase inhibitors; M85.839 Other specified disorders of bone density and structure, unspecified forearm
CPT/HCPCS: 99212; G0463